=== PATIENT | female | born 1985 | race Caucasian/White ===

== ENCOUNTER 2018-04-13 00:47 | Emergency (ER) | payer MEDICAID ==
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
[2018-04-13 03:01] VITALS: BP 134/71
== END 2018-04-13 03:02 | disposition home or self-care (01) ==
DX: Z04.1 Encounter for examination and observation following transport accident (principal)